=== PATIENT | male | born 1995 | race Caucasian/White ===

== ENCOUNTER 2017-01-29 11:05 | Emergency (ER) | payer OTHER ==
[~2017-01-29] VITALS: Ht 172.7 cm; Wt 75.0 kg
[~2017-01-29 11:05] MED LIST: FAMO40TA70 PO; ONDA4TAB5 PO
[2017-01-29] MEDS ORDERED: SODIUM CHLORIDE 0.9% 1,000 ML IV ONE (11:10)
[2017-01-29] MEDS ORDERED: ONDANSETRON HCL 4MG/2ML VIAL IV STA (11:10)
[2017-01-29] MEDS ORDERED: KETOROLAC 30MG/ML VIAL IV STA (11:10)
[2017-01-29 11:47] LABS: BASOPHILS % 0.5 % (0.0-2.0); EOSINOPHILS % 0.1 % (0.0-5.0); HEMATOCRIT. 45.5 % (42.0-52.0); HEMOGLOBIN. 14.8 g/dL (14.0-18.0); LYMPHOCYTES % 11.2 % (20.0-50.0); MEAN CORPUSCULAR HEMOGLOBIN 26.8 pg (28.0-32.0); MEAN CORPUSCULAR VOLUME 82.7 fL (80.0-94.0); MEAN PLATELET VOLUME 8.8 fl (7.4-10.4); MONOCYTES % 5.6 % (2.0-8.0); NEUTROPHILS % 82.6 % (40.0-76.0); PLATELET 308 x1000/uL (130-400); RED CELL DISTRIBUTION WIDTH 17.1 % (11.6-14.6)
[2017-01-29 11:53] LABS: PROTHROMBIN TIME 10.8 sec (9.4-11.6)
[2017-01-29 12:00] LABS: CARBON DIOXIDE 25 mEq/L (21-32); CHLORIDE 107 mEq/L (98-107); ETHANOL BLOOD < 10 mg/dL
[2017-01-29] MEDS ORDERED: LORAZEPAM 2MG/ML CPJ IV ONE (12:00)
[2017-01-29] MEDS ORDERED: CAPSAICIN 0.075% CREAM 60GM TOP PRN (13:30)
[2017-01-29] MEDS ORDERED: ONDANSETRON HCL 4MG/2ML VIAL IV ONE (15:15)
[2017-01-29] MEDS ORDERED: MORPHINE SULFATE 4 MG/ML CPJ (NOT FOR IM USE) IV ONE (15:15)
[2017-01-29] MEDS ORDERED: MORPHINE SULFATE 2 MG/ML CPJ (NOT FOR IM USE) IV ONE (15:20)
[2017-01-29 16:00] VITALS: BP 114/58
== END 2017-01-29 16:00 | disposition home or self-care (01) ==
LOC: ER 11:14
DX: R10.9 Unspecified abdominal pain (principal); Z87.11 Personal history of peptic ulcer disease
CPT/HCPCS: 36415; 74176; 80053; 83690; 85025; 85610; 96361; 96374; 96375; 96376; 99285; G0482; J1885; J2060; J2270; J2405; Z7610; J7030

== ENCOUNTER 2017-02-13 02:45 | Emergency (ER) | payer OTHER ==
[~2017-02-13] VITALS: Ht 165.1 cm; Wt 72.0 kg
[2017-02-13] MEDS ORDERED: KETOROLAC 30MG/ML VIAL IM ONE (05:00)
[2017-02-13] MEDS ORDERED: ONDANSETRON 4MG ODT PO ONE (05:00)
[2017-02-13] MEDS ORDERED: CEPHALEXIN 500MG CAPSULE PO ONE (06:30)
[2017-02-13] MEDS ORDERED: TETANUS, DIPHTHERIA, PERTUSSIS VAC/PF 0.5ML (>7YR OLD) IM ONE (06:30)
[2017-02-13 07:15] VITALS: BP 122/74
== END 2017-02-13 07:28 | disposition home or self-care (01) ==
LOC: ER 02:56
DX: S61.431A Puncture wound without foreign body of right hand, initial encounter (principal); R03.0 Elevated blood-pressure reading, without diagnosis of hypertension; W34.00XA Accidental discharge from unspecified firearms or gun, initial encounter; Y93.89 Activity, other specified; Y92.89 Other specified places as the place of occurrence of the external cause; Y99.8 Other external cause status
CPT/HCPCS: 29125; 73130; 96372; 99284; A4217; J1885; Q0162; Z7610

== ENCOUNTER 2017-04-29 15:42 | Emergency (ER) | payer OTHER ==
[~2017-04-29] VITALS: Ht 172.7 cm; Wt 65.0 kg
[2017-04-29] MEDS ORDERED: SODIUM CHLORIDE 0.9% 1,000 ML IV ONE (16:22)
[2017-04-29] MEDS ORDERED: FAMOTIDINE 20MG/2ML VIAL IV ONE (16:30)
[2017-04-29] MEDS ORDERED: VISCOUS LIDOCAINE 2% 15 ML UDC PO ONE (16:30)
[2017-04-29] MEDS ORDERED: ONDANSETRON HCL 4MG/2ML INJ IV ONE ×2 (16:30→21:00)
[2017-04-29] MEDS ORDERED: MAGNESIUM/ALUMINUM HYDROXIDE/SIMETHICONE 30ML UDC PO ONE (16:30)
[2017-04-29 16:44] LABS: BASOPHILS % 0.7 % (0.0-2.0); HEMATOCRIT. 47.2 % (42.0-52.0); HEMOGLOBIN. 15.4 g/dL (14.0-18.0); LYMPHOCYTES % 8.9 % (20.0-50.0); MEAN CORPUSCULAR HEMOGLOBIN 27.7 pg (28.0-32.0); MEAN CORPUSCULAR VOLUME 84.7 fL (80.0-94.0); MEAN PLATELET VOLUME 8.6 fl (7.4-10.4); MONOCYTES % 3.2 % (2.0-8.0); NEUTROPHILS % 87.2 % (40.0-76.0); PLATELET 262 x1000/uL (130-400); RED BLOOD CELL COUNT 5.57 mill/uL (4.7-6.1)
[2017-04-29 16:59] LABS: CHLORIDE 105 mEq/L (98-107); ETHANOL BLOOD < 10 mg/dL
[2017-04-29] MEDS ORDERED: POTASSIUM CHLORIDE 20MEQ TABLET SR PO ONE (17:45)
[2017-04-29] MEDS ORDERED: DICYCLOMINE 10 MG/5 ML ORAL SYR PO ONE (17:45)
[2017-04-29] MEDS ORDERED: ONDANSETRON 4MG ODT PO ONE (17:45)
[2017-04-29] MEDS ORDERED: MORPHINE SULFATE 4 MG/ML CPJ (NOT FOR IM USE) IV ONE (17:45)
[2017-04-29] MEDS ORDERED: METOCLOPRAMIDE HCL 10MG/2ML VIAL IV ONE (20:15)
[2017-04-29 23:15] VITALS: BP 111/89
== END 2017-04-29 23:15 | disposition home or self-care (01) ==
LOC: ER 15:47
DX: R10.13 Epigastric pain (principal); R11.2 Nausea with vomiting, unspecified; E87.6 Hypokalemia; K21.9 Gastro-esophageal reflux disease without esophagitis; N28.1 Cyst of kidney, acquired
CPT/HCPCS: 36415; 74176; 80053; 83690; 85025; 96361; 96374; 96375; 96376; 99285; G0482; J2270; J2405; J3490; J7030; Q0162; Z7610

== ENCOUNTER 2017-07-18 05:51 | Inpatient (IN) | payer OTHER ==
[~2017-07-18] VITALS: Ht 165.1 cm; Wt 74.0 kg
[2017-07-18] MEDS ORDERED: SODIUM CHLORIDE 0.9% 1,000 ML IV ONE (06:40)
[2017-07-18] MEDS ORDERED: ONDANSETRON HCL 4MG/2ML VIAL IV STA ×2 (06:40→11:24)
[2017-07-18] MEDS ORDERED: MORPHINE SULFATE 4 MG/ML CPJ (NOT FOR IM USE) IV STA ×2 (06:40→11:24)
[2017-07-18 06:59] LABS: HEMATOCRIT. 51.3 % (42.0-52.0); HEMOGLOBIN. 17.3 g/dL (14.0-18.0); MEAN CORPUSCULAR HEMOGLOBIN 30.2 pg (28.0-32.0); MEAN CORPUSCULAR VOLUME 89.7 fL (80.0-94.0); MEAN PLATELET VOLUME 8.6 fl (7.4-10.4); PLATELET 290 x1000/uL (130-400); RED BLOOD CELL COUNT 5.72 mill/uL (4.7-6.1); RED CELL DISTRIBUTION WIDTH 16.4 % (11.6-14.6)
[2017-07-18 07:03] LABS: CHLORIDE 110 mEq/L (98-107)
[2017-07-18 07:07] LABS: ETHANOL BLOOD 58 mg/dL; INR 1.1; PARTIAL THROMBOPLASTIN TIME 23.5 sec (23.4-31.0); PROTHROMBIN TIME 11.3 sec (9.4-11.6)
[2017-07-18 07:35] LABS: PLATELET ESTIMATE NORMAL
[2017-07-18 08:33] LABS: KETONES URINE 1+ (NEGATIVE); LEUKOCYTE ESTERASE URINE TRACE (NEGATIVE); NITRITE URINE NEGATIVE (NEGATIVE); OCCULT BLOOD URINE NEGATIVE (NEGATIVE); PROTEIN URINE 2+ (NEGATIVE); SPECIFIC GRAVITY URINE 1.039 (1.005-1.030); UROBILINOGEN URINE 0.2 E.U./dL (0.2-1.0)
[2017-07-18 08:35] LABS: COLOR URINE DARK YELLOW (YELLOW)
[2017-07-18 08:36] LABS: CLARITY URINE HAZY (CLEAR)
[2017-07-18] MEDS ORDERED: LEVOFLOXACIN 750MG PREMIX 150 ML IV ONE (09:00)
[2017-07-18] MEDS ORDERED: SODIUM CHLORIDE 0.9% 1000ML BAG (SEPSIS BOLUS) IV ONE (09:00)
[2017-07-18 09:19] LABS: *AMPHETAMINES SCREEN URINE NEGATIVE (NEGATIVE); *BARBITURATES SCREEN URINE NEGATIVE (NEGATIVE); *BENZODIAZEPINES SCREEN URINE NEGATIVE (NEGATIVE)
[2017-07-18 09:20] LABS: *COCAINE SCREEN URINE NEGATIVE (NEGATIVE); CANNABINOID URINE SCREEN PRESUMTIVE POSITIVE (NEGATIVE); METHADONE URINE SCREEN NEGATIVE (NEGATIVE); OPIATES URINE SCREEN PRESUMTIVE POSITIVE (NEGATIVE); PHENCYCLIDINE URINE SCREEN NEGATIVE (NEGATIVE)
[2017-07-18] MEDS ORDERED: ONDANSETRON HCL 4MG/2ML VIAL IV ONE (10:00)
[2017-07-18] MEDS ORDERED: ONDANSETRON HCL 4MG/2ML VIAL IV PRN (11:45)
[2017-07-18] MEDS ORDERED: SODIUM CHLORIDE 0.9% 1,000 ML IV SCH (11:45)
[2017-07-18] MEDS ORDERED: MORPHINE SULFATE 4 MG/ML CPJ (NOT FOR IM USE) IV PRN (11:45)
[2017-07-18 15:00] VITALS: BP 122/80
[2017-07-18 16:21] VITALS: BP 110/59
[2017-07-18 20:00] VITALS: BP 118/65
[2017-07-19] MEDS ORDERED: LEVOFLOXACIN 500MG PREMIX 100 ML IV SCH (09:00)
== END 2017-07-18 23:12 | disposition left against medical advice (07) | DRG 720 ==
LOC: ER 05:51 → 6WST 11:38 → ENRESERV 13:35
PROVIDERS: ADMIT Internal Medicine; ATTEND Internal Medicine
DX: A41.9 Sepsis, unspecified organism (principal); N28.1 Cyst of kidney, acquired; N39.0 Urinary tract infection, site not specified; I88.0 Nonspecific mesenteric lymphadenitis; K21.9 Gastro-esophageal reflux disease without esophagitis; Z53.21 Procedure and treatment not carried out due to patient leaving prior to being seen by health care provider; F15.90 Other stimulant use, unspecified, uncomplicated; R65.20 Severe sepsis without septic shock; Z79.899 Other long term (current) drug therapy
CPT/HCPCS: 36415; 71045; 74176; 80053; 80305; 81003; 83605; 83690; 85025; 85610; 85730; 87040; 87086; 93005; 96361; 96365; 96366; 96375; 96376; 99291; G0482; J1956; J2270; J2405; J7030

== ENCOUNTER 2017-11-25 02:45 | Emergency (ER) | payer OTHER ==
[~2017-11-25] VITALS: Ht 167.6 cm; Wt 72.0 kg
[2017-11-25] MEDS ORDERED: METOCLOPRAMIDE HCL 10MG/2ML VIAL IV STA (03:49)
[2017-11-25 03:58] LABS: BASOPHILS % 0.2 % (0.0-2.0); HEMATOCRIT. 49.1 % (42.0-52.0); HEMOGLOBIN. 16.6 g/dL (14.0-18.0); LYMPHOCYTES % 8.1 % (20.0-50.0); MEAN CORPUSCULAR HEMOGLOBIN 31.1 pg (28.0-32.0); MEAN CORPUSCULAR VOLUME 91.8 fL (80.0-94.0); MEAN PLATELET VOLUME 9.2 fl (7.4-10.4); MONOCYTES % 7.5 % (2.0-8.0); NEUTROPHILS % 84.2 % (40.0-76.0); PLATELET 252 x1000/uL (130-400); RED BLOOD CELL COUNT 5.35 mill/uL (4.7-6.1); RED CELL DISTRIBUTION WIDTH 14.3 % (11.6-14.6)
[2017-11-25 03:59] LABS: CHLORIDE 103 mEq/L (98-107)
[2017-11-25] MEDS ORDERED: HALOPERIDOL LACTATE 5MG/ML VIAL IM ONE (04:00)
[2017-11-25 05:10] LABS: CLARITY URINE CLEAR (CLEAR); COLOR URINE DARK YELLOW (YELLOW); KETONES URINE 1+ (NEGATIVE); LEUKOCYTE ESTERASE URINE TRACE (NEGATIVE); NITRITE URINE NEGATIVE (NEGATIVE); OCCULT BLOOD URINE NEGATIVE (NEGATIVE); PH URINE 7.5 (4.5-8.0); PROTEIN URINE 1+ (NEGATIVE); SPECIFIC GRAVITY URINE 1.029 (1.005-1.030)
[2017-11-25 05:50] VITALS: BP 128/83
== END 2017-11-25 05:53 | disposition home or self-care (01) ==
LOC: ER 02:45
DX: F12.188 Cannabis abuse with other cannabis-induced disorder (principal); R03.0 Elevated blood-pressure reading, without diagnosis of hypertension; D72.829 Elevated white blood cell count, unspecified; F17.210 Nicotine dependence, cigarettes, uncomplicated
CPT/HCPCS: 36415; 80053; 81003; 83690; 85025; 96374; 99284; J1630; J2765

== ENCOUNTER 2018-03-12 22:43 | Emergency (ER) | payer OTHER ==
[~2018-03-12] VITALS: Ht 172.7 cm; Wt 73.0 kg
[2018-03-12 23:00] VITALS: BP 123/84
[2018-03-12] MEDS ORDERED: HALOPERIDOL LACTATE 5MG/ML VIAL IM ONE (23:15)
[2018-03-12] MEDS ORDERED: METOCLOPRAMIDE HCL 10MG/2ML VIAL IV ONE (23:15)
[2018-03-12 23:36] LABS: HEMATOCRIT 51.9 % (42.0-52.0); HEMOGLOBIN 17.2 g/dL (14.0-18.0); MEAN CORPUSCULAR HEMOGLOBIN 30.7 pg (28.0-32.0); MEAN CORPUSCULAR VOLUME 92.3 fL (80.0-94.0); PLATELET 255 x1000/uL (130-400); RED BLOOD CELL COUNT 5.62 mill/uL (4.7-6.1)
[2018-03-12 23:44] LABS: CHLORIDE 109 mEq/L (98-107)
[2018-03-13 01:01] LABS: CLARITY URINE TURBID (CLEAR); COLOR URINE DARK YELLOW (YELLOW); KETONES URINE 1+ (NEGATIVE); LEUKOCYTE ESTERASE URINE 1+ (NEGATIVE); NITRITE URINE POSITIVE (NEGATIVE); OCCULT BLOOD URINE NEGATIVE (NEGATIVE); PH URINE 5.5 (4.5-8.0); PROTEIN URINE 2+ (NEGATIVE); SPECIFIC GRAVITY URINE 1.047 (1.005-1.030)
== END 2018-03-13 02:08 | disposition left against medical advice (07) ==
LOC: ER 22:55
DX: R11.10 Vomiting, unspecified (principal); D72.829 Elevated white blood cell count, unspecified; F12.10 Cannabis abuse, uncomplicated; K21.9 Gastro-esophageal reflux disease without esophagitis; Z98.890 Other specified postprocedural states
CPT/HCPCS: 36415; 80053; 81003; 85027; 96372; 96374; 99283; J1630; J2765

== ENCOUNTER 2018-11-29 14:50 | Emergency (ER) | payer OTHER ==
[~2018-11-29] VITALS: Ht 157.5 cm; Wt 71.0 kg
[~2018-11-29 14:50] MED LIST changes: -FAMO40TA70 PO
[2018-11-29] MEDS ORDERED: SODIUM CHLORIDE 0.9% 1,000 ML IV ONE (15:24)
[2018-11-29] MEDS ORDERED: ONDANSETRON HCL 4MG/2ML INJ IV STA ×2 (15:24→17:02)
[2018-11-29] MEDS ORDERED: MAGNESIUM/ALUMINUM HYDROXIDE/SIMETHICONE 30ML UDC PO STA (15:24)
[2018-11-29] MEDS ORDERED: FAMOTIDINE 20MG/2ML VIAL IV ONE ×2 (15:30→16:15)
[2018-11-29 16:04] LABS: HEMATOCRIT. 51.7 % (42.0-52.0); HEMOGLOBIN. 17.7 g/dL (14.0-18.0); MEAN CORPUSCULAR HEMOGLOBIN 32.3 pg (28.0-32.0); MEAN CORPUSCULAR VOLUME 94.1 fL (80.0-94.0); MEAN PLATELET VOLUME 8.4 fl (7.4-10.4); PLATELET 268 x1000/uL (130-400); RED BLOOD CELL COUNT 5.49 mill/uL (4.7-6.1); RED CELL DISTRIBUTION WIDTH 14.6 % (11.6-14.6)
[2018-11-29 16:13] LABS: CHLORIDE 106 mEq/L (98-107)
[2018-11-29 16:19] LABS: ETHANOL BLOOD < 10 mg/dL
[2018-11-29] MEDS ORDERED: KETOROLAC 30MG/ML VIAL IV ONE (16:45)
[2018-11-29 16:55] LABS: PLATELET ESTIMATE NORMAL
[2018-11-29] MEDS ORDERED: MORPHINE SULFATE 4 MG/ML CPJ (NOT FOR IM USE) IV STA (17:02)
[2018-11-29 17:23] LABS: CLARITY URINE TURBID (CLEAR); COLOR URINE DARK YELLOW (YELLOW); KETONES URINE 1+ (NEGATIVE); LEUKOCYTE ESTERASE URINE TRACE (NEGATIVE); NITRITE URINE POSITIVE (NEGATIVE); OCCULT BLOOD URINE NEGATIVE (NEGATIVE); PROTEIN URINE 3+ (NEGATIVE); SPECIFIC GRAVITY URINE 1.035 (1.005-1.030)
[2018-11-29 18:43] VITALS: BP 120/90
[2018-11-30 11:13] LABS: *AMPHETAMINES SCREEN URINE NEGATIVE (NEGATIVE); *BARBITURATES SCREEN URINE NEGATIVE (NEGATIVE); *BENZODIAZEPINES SCREEN URINE NEGATIVE (NEGATIVE); *COCAINE SCREEN URINE NEGATIVE (NEGATIVE); METHADONE URINE SCREEN NEGATIVE (NEGATIVE); OPIATES URINE SCREEN NEGATIVE (NEGATIVE)
[2018-11-30 11:14] LABS: CANNABINOID URINE SCREEN PRESUMTIVE POSITIVE (NEGATIVE); PHENCYCLIDINE URINE SCREEN NEGATIVE (NEGATIVE)
== END 2018-11-29 20:44 | disposition home or self-care (01) ==
LOC: ER 14:50
DX: A41.9 Sepsis, unspecified organism (principal); N39.0 Urinary tract infection, site not specified; Q61.01 Congenital single renal cyst; K76.0 Fatty (change of) liver, not elsewhere classified; K21.9 Gastro-esophageal reflux disease without esophagitis; N28.9 Disorder of kidney and ureter, unspecified; Z98.890 Other specified postprocedural states; Z87.19 Personal history of other diseases of the digestive system
CPT/HCPCS: 36415; 74176; 80053; 80305; 80320; 81003; 83690; 85025; 87086; 96361; 96374; 96375; 96376; 99284; J1885; J2270; J2405; J3490; J7030; G0480

== ENCOUNTER 2018-12-01 07:40 | Emergency (ER) | payer OTHER ==
[~2018-12-01] VITALS: Ht 165.1 cm; Wt 78.0 kg
[2018-12-01] MEDS ORDERED: SODIUM CHLORIDE 0.9% 1,000 ML IV ONE (07:54)
[2018-12-01] MEDS ORDERED: ONDANSETRON HCL 4MG/2ML INJ IV STA (07:54)
[2018-12-01] MEDS ORDERED: MORPHINE SULFATE 4 MG/ML CPJ (NOT FOR IM USE) IV STA (07:54)
[2018-12-01] MEDS ORDERED: KETOROLAC 15MG/ML VIAL IV ONE (08:00)
[2018-12-01] MEDS ORDERED: LORAZEPAM 2MG/ML CPJ IV ONE (08:00)
[2018-12-01 08:31] LABS: EOSINOPHILS % 0.7 % (0.0-5.0); HEMATOCRIT. 48.5 % (42.0-52.0); HEMOGLOBIN. 16.3 g/dL (14.0-18.0); MEAN CORPUSCULAR HEMOGLOBIN 31.6 pg (28.0-32.0); MEAN CORPUSCULAR VOLUME 93.9 fL (80.0-94.0); MEAN PLATELET VOLUME 8.4 fl (7.4-10.4); MONOCYTES % 8.3 % (2.0-8.0); PLATELET 259 x1000/uL (130-400); RED BLOOD CELL COUNT 5.17 mill/uL (4.7-6.1); RED CELL DISTRIBUTION WIDTH 14.4 % (11.6-14.6)
[2018-12-01 09:02] LABS: CHLORIDE 104 mEq/L (98-107)
[2018-12-01] MEDS ORDERED: POTASSIUM CHLORIDE 20MEQ TABLET SR PO ONE (09:30)
[2018-12-01] MEDS ORDERED: HALOPERIDOL LACTATE 5MG/ML VIAL IM ONE (10:45)
[2018-12-01] MEDS ORDERED: CEPHALEXIN 250MG CAPSULE PO ONE (11:15)
[2018-12-01 11:25] VITALS: BP 139/84
== END 2018-12-01 11:28 | disposition home or self-care (01) ==
LOC: ER 07:40
DX: N39.0 Urinary tract infection, site not specified (principal); G89.29 Other chronic pain; R10.12 Left upper quadrant pain
CPT/HCPCS: 36415; 80053; 83690; 85025; 96361; 96372; 96374; 96375; 99283; J1630; J1885; J2060; J2270; J2405; J7030

== ENCOUNTER 2018-12-07 07:21 | Emergency (ER) | payer OTHER ==
[~2018-12-07] VITALS: Ht 172.7 cm; Wt 90.0 kg
[2018-12-07] MEDS ORDERED: FAMOTIDINE 20MG/2ML VIAL IV STA (08:19)
[2018-12-07] MEDS ORDERED: SODIUM CHLORIDE 0.9% 1,000 ML IV ONE (08:19)
[2018-12-07 08:50] LABS: BASOPHILS % 0.7 % (0.0-2.0); EOSINOPHILS % 1.1 % (0.0-5.0); HEMATOCRIT. 47.2 % (42.0-52.0); HEMOGLOBIN. 16.1 g/dL (14.0-18.0); LYMPHOCYTES % 12.3 % (20.0-50.0); MEAN CORPUSCULAR HEMOGLOBIN 32.4 pg (28.0-32.0); MEAN PLATELET VOLUME 8.4 fl (7.4-10.4); NEUTROPHILS % 77.9 % (40.0-76.0); PLATELET 230 x1000/uL (130-400); RED BLOOD CELL COUNT 4.97 mill/uL (4.7-6.1); RED CELL DISTRIBUTION WIDTH 14.9 % (11.6-14.6)
[2018-12-07 08:56] LABS: PROTHROMBIN TIME 10.4 sec (9.6-11.0)
[2018-12-07 08:56] LABS: CHLORIDE 107 mEq/L (98-107)
[2018-12-07] MEDS ORDERED: MAGNESIUM/ALUMINUM HYDROXIDE/SIMETHICONE 30ML UDC PO STA (09:58)
[2018-12-07] MEDS ORDERED: VISCOUS LIDOCAINE 2% 15 ML UDC PO STA (09:58)
[2018-12-07] MEDS ORDERED: DICYCLOMINE 10 MG/5 ML ORAL SYR PO STA (09:58)
[2018-12-07 10:32] VITALS: BP 156/87
== END 2018-12-07 10:37 | disposition home or self-care (01) ==
LOC: ER 07:21
DX: K29.00 Acute gastritis without bleeding (principal); R11.2 Nausea with vomiting, unspecified; F12.10 Cannabis abuse, uncomplicated
CPT/HCPCS: 36415; 71045; 74176; 80053; 83605; 83690; 85025; 85610; 96361; 96374; 99284; J3490; J7030

== ENCOUNTER 2018-12-14 06:50 | Emergency (ER) | payer OTHER ==
[~2018-12-14] VITALS: Ht 172.7 cm; Wt 79.0 kg
[2018-12-14] MEDS ORDERED: SODIUM CHLORIDE 0.9% 1,000 ML IV ONE (07:40)
[2018-12-14] MEDS ORDERED: ONDANSETRON HCL 4MG/2ML INJ IV STA (07:40)
[2018-12-14] MEDS ORDERED: KETOROLAC 30MG/ML VIAL IV STA (07:40)
[2018-12-14 08:31] LABS: BASOPHILS % 0.4 % (0.0-2.0); EOSINOPHILS % 0.2 % (0.0-5.0); HEMATOCRIT. 43.5 % (42.0-52.0); HEMOGLOBIN. 14.7 g/dL (14.0-18.0); MEAN CORPUSCULAR HEMOGLOBIN 31.8 pg (28.0-32.0); MEAN CORPUSCULAR VOLUME 93.9 fL (80.0-94.0); MONOCYTES % 9.8 % (2.0-8.0); NEUTROPHILS % 75.6 % (40.0-76.0); PLATELET 226 x1000/uL (130-400); RED BLOOD CELL COUNT 4.63 mill/uL (4.7-6.1); RED CELL DISTRIBUTION WIDTH 14.8 % (11.6-14.6)
[2018-12-14 08:37] LABS: CHLORIDE 104 mEq/L (98-107)
[2018-12-14 08:39] LABS: PROTHROMBIN TIME 10.7 sec (9.6-11.0)
[2018-12-14 10:44] LABS: CLARITY URINE TURBID (CLEAR); COLOR URINE ORANGE (YELLOW); KETONES URINE TRACE (NEGATIVE); LEUKOCYTE ESTERASE URINE TRACE (NEGATIVE); NITRITE URINE POSITIVE (NEGATIVE); OCCULT BLOOD URINE NEGATIVE (NEGATIVE); PH URINE 5.5 (4.5-8.0); PROTEIN URINE 1+ (NEGATIVE)
[2018-12-14 10:57] LABS: *AMPHETAMINES SCREEN URINE NEGATIVE (NEGATIVE); *BARBITURATES SCREEN URINE NEGATIVE (NEGATIVE)
[2018-12-14 10:58] LABS: *BENZODIAZEPINES SCREEN URINE NEGATIVE (NEGATIVE); *COCAINE SCREEN URINE NEGATIVE (NEGATIVE); CANNABINOID URINE SCREEN PRESUMTIVE POSITIVE (NEGATIVE); METHADONE URINE SCREEN NEGATIVE (NEGATIVE); OPIATES URINE SCREEN NEGATIVE (NEGATIVE); PHENCYCLIDINE URINE SCREEN NEGATIVE (NEGATIVE)
[2018-12-14 11:50] VITALS: BP 106/82
== END 2018-12-14 11:50 | disposition home or self-care (01) ==
LOC: ER 06:50
DX: K52.9 Noninfective gastroenteritis and colitis, unspecified (principal); N39.0 Urinary tract infection, site not specified; F12.10 Cannabis abuse, uncomplicated
CPT/HCPCS: 36415; 74176; 80053; 80305; 81003; 83690; 85025; 85610; 96361; 96374; 96375; 99284; J1885; J2405; J7030

== ENCOUNTER 2019-01-01 16:42 | Emergency (ER) | payer OTHER ==
[~2019-01-01] VITALS: Ht 165.1 cm; Wt 73.0 kg
[2019-01-01] MEDS ORDERED: VISCOUS LIDOCAINE 2% 15 ML UDC PO STA (19:11)
[2019-01-01] MEDS ORDERED: MAGNESIUM/ALUMINUM HYDROXIDE/SIMETHICONE 30ML UDC PO STA (19:11)
[2019-01-01] MEDS ORDERED: DICYCLOMINE 10 MG/5 ML ORAL SYR PO STA (19:11)
[2019-01-01] MEDS ORDERED: LORAZEPAM 1MG TABLET PO ONE (19:15)
[2019-01-01 21:10] LABS: BASOPHILS % 0.6 % (0.0-2.0); HEMATOCRIT. 57.3 % (42.0-52.0); HEMOGLOBIN. 19.3 g/dL (14.0-18.0); LYMPHOCYTES % 8.9 % (20.0-50.0); MEAN CORPUSCULAR HEMOGLOBIN 32.1 pg (28.0-32.0); MEAN PLATELET VOLUME 8.5 fl (7.4-10.4); MONOCYTES % 8.6 % (2.0-8.0); NEUTROPHILS % 81.9 % (40.0-76.0); PLATELET 330 x1000/uL (130-400); RED BLOOD CELL COUNT 6.03 mill/uL (4.7-6.1); RED CELL DISTRIBUTION WIDTH 14.4 % (11.6-14.6)
[2019-01-01 21:16] LABS: CHLORIDE 102 mEq/L (98-107)
[2019-01-01 21:19] LABS: ETHANOL BLOOD < 10 mg/dL
[2019-01-01] MEDS ORDERED: ONDANSETRON HCL 4MG/2ML INJ IV STA (21:36)
[2019-01-01] MEDS ORDERED: SODIUM CHLORIDE 0.9% 1,000 ML IV ONE (21:36)
[2019-01-01] MEDS ORDERED: MORPHINE SULFATE 4 MG/ML CPJ (NOT FOR IM USE) IV STA (21:36)
[2019-01-01] MEDS: MORPHINE SULFATE 4 MG/ML CPJ (NOT FOR IM USE) IV NR (23:14)
[2019-01-02] MEDS ORDERED: FENTANYL CITRATE/PF 50MCG/ML 2ML VIAL IV ONE (00:30)
[2019-01-02] MEDS ORDERED: SODIUM CHLORIDE 0.9% 1,000 ML IV ONE (00:30)
[2019-01-02] MEDS: MORPHINE SULFATE 4 MG/ML CPJ (NOT FOR IM USE) IV NR (00:35)
[2019-01-02 04:00] VITALS: BP 135/65
== END 2019-01-02 04:22 | disposition short-term general hospital (02) ==
LOC: ER 16:58 → CANBEDREQ 01-02 05:41
DX: N17.9 Acute kidney failure, unspecified (principal); F12.10 Cannabis abuse, uncomplicated; K21.9 Gastro-esophageal reflux disease without esophagitis
CPT/HCPCS: 36415; 74176; 80053; 80320; 83690; 85025; 96374; 96375; 99285; J2270; J2405; J3010; J7030; G0480

== ENCOUNTER 2019-01-25 17:56 | Inpatient (IN) | payer OTHER ==
[~2019-01-25] VITALS: Ht 170.2 cm; Wt 78.0 kg
[2019-01-25] MEDS ORDERED: ONDANSETRON HCL 4MG/2ML INJ IV STA (19:48)
[2019-01-25] MEDS ORDERED: FAMOTIDINE 20MG/2ML VIAL IV STA (19:48)
[2019-01-25] MEDS ORDERED: SODIUM CHLORIDE 0.9% 1,000 ML IV ONE ×2 (19:48→23:51)
[2019-01-25] MEDS ORDERED: HALOPERIDOL LACTATE 5MG/ML VIAL IM ONE (20:00)
[2019-01-25] MEDS ORDERED: LORAZEPAM 2MG/ML CPJ IV ONE (20:00)
[2019-01-25 20:12] LABS: HEMATOCRIT. 52.7 % (42.0-52.0); HEMOGLOBIN. 17.8 g/dL (14.0-18.0); MEAN CORPUSCULAR VOLUME 94.6 fL (80.0-94.0); MEAN PLATELET VOLUME 8.9 fl (7.4-10.4); PLATELET 313 x1000/uL (130-400); RED BLOOD CELL COUNT 5.57 mill/uL (4.7-6.1); RED CELL DISTRIBUTION WIDTH 14.5 % (11.6-14.6)
[2019-01-25 20:16] LABS: CHLORIDE 100 mEq/L (98-107)
[2019-01-25 20:17] LABS: INR 1.7; PROTHROMBIN TIME 16.7 sec (9.6-11.0)
[2019-01-25 21:18] LABS: PLATELET ESTIMATE NORMAL
[2019-01-26] VITALS (8 sets, daily range): BP systolic 105–138; BP diastolic 47–89
[2019-01-26] MEDS ORDERED: FAMO-135 MT (01:12)
[2019-01-26] MEDS ORDERED: MORPHINE SULFATE 4 MG/ML CPJ (NOT FOR IM USE) IV PRN (01:30)
[2019-01-26] MEDS ORDERED: ONDANSETRON 4MG ODT PO PRN (01:30)
[2019-01-26] MEDS ORDERED: SODIUM CHLORIDE 0.9% 1,000 ML IV SCH (02:00)
[2019-01-26 03:15] LABS: CLARITY URINE TURBID (CLEAR); COLOR URINE DARK YELLOW (YELLOW); KETONES URINE TRACE (NEGATIVE); LEUKOCYTE ESTERASE URINE NEGATIVE (NEGATIVE); NITRITE URINE NEGATIVE (NEGATIVE); OCCULT BLOOD URINE NEGATIVE (NEGATIVE); PROTEIN URINE 1+ (NEGATIVE); SPECIFIC GRAVITY URINE 1.028 (1.005-1.030); UROBILINOGEN URINE 0.2 E.U./dL (0.2-1.0)
[2019-01-26 03:29] LABS: *AMPHETAMINES SCREEN URINE NEGATIVE (NEGATIVE); *BARBITURATES SCREEN URINE NEGATIVE (NEGATIVE); *BENZODIAZEPINES SCREEN URINE NEGATIVE (NEGATIVE); *COCAINE SCREEN URINE NEGATIVE (NEGATIVE); METHADONE URINE SCREEN NEGATIVE (NEGATIVE); OPIATES URINE SCREEN NEGATIVE (NEGATIVE)
[2019-01-26 03:30] LABS: CANNABINOID URINE SCREEN PRESUMTIVE POSITIVE (NEGATIVE); PHENCYCLIDINE URINE SCREEN NEGATIVE (NEGATIVE)
[2019-01-26] MEDS ORDERED: CEFTRIAXONE 1 G PREMIX 50 ML IV SCH (04:00)
[2019-01-26 06:49] LABS: BASOPHILS % 0.6 % (0.0-2.0); EOSINOPHILS % 0.1 % (0.0-5.0); HEMATOCRIT. 46.9 % (42.0-52.0); HEMOGLOBIN. 15.6 g/dL (14.0-18.0); MEAN CORPUSCULAR HEMOGLOBIN 31.5 pg (28.0-32.0); MEAN CORPUSCULAR VOLUME 94.8 fL (80.0-94.0); MEAN PLATELET VOLUME 8.5 fl (7.4-10.4); MONOCYTES % 12.6 % (2.0-8.0); NEUTROPHILS % 69.7 % (40.0-76.0); PLATELET 248 x1000/uL (130-400); RED BLOOD CELL COUNT 4.95 mill/uL (4.7-6.1); RED CELL DISTRIBUTION WIDTH 14.6 % (11.6-14.6)
[2019-01-26] MEDS ORDERED: PANTOPRAZOLE SODIUM 40 MG/VIAL IV SCH (09:00)
[2019-01-26] MEDS ORDERED: ONDANSETRON HCL 4MG/2ML INJ IV PRN (09:30)
[2019-01-26] MEDS ORDERED: HYDROMORPHONE HCL/PF 2MG/ML CPJ IV PRN (12:15)
[2019-01-26] MEDS: METOCLOPRAMIDE HCL 10MG/2ML VIAL IV SCH ×2 (12:59→17:27)
== END 2019-01-26 17:58 | disposition home or self-care (01) | DRG 720 ==
LOC: ER 17:56 → 7WST 23:54 → ENRESERV 01-26 00:07
PROVIDERS: ADMIT Internal Medicine; ATTEND Internal Medicine
DX: A41.9 Sepsis, unspecified organism (principal); N17.0 Acute kidney failure with tubular necrosis; Z79.899 Other long term (current) drug therapy; K52.9 Noninfective gastroenteritis and colitis, unspecified; E87.6 Hypokalemia; G89.29 Other chronic pain; K21.9 Gastro-esophageal reflux disease without esophagitis
CPT/HCPCS: 36415; 71045; 80048; 80305; 80320; 81003; 93005; 96361; 96372; 96374; 96375; 99285; C9113; J0696; J1170; J1630; J2060; J2270; J2405; J2765; J3490; J7030; G0480

== ENCOUNTER 2019-02-25 05:51 | Emergency (ER) | payer OTHER ==
[~2019-02-25] VITALS: Ht 157.5 cm; Wt 73.0 kg
[~2019-02-25 05:51] MED LIST changes: +FAMO-135 MT
[2019-02-25 07:28] LABS: BASOPHILS % 0.6 % (0.0-2.0); HEMOGLOBIN. 18.1 g/dL (14.0-18.0); LYMPHOCYTES % 7.4 % (20.0-50.0); MEAN CORPUSCULAR HEMOGLOBIN 31.5 pg (28.0-32.0); MEAN CORPUSCULAR VOLUME 92.5 fL (80.0-94.0); MEAN PLATELET VOLUME 9.1 fl (7.4-10.4); PLATELET 268 x1000/uL (130-400); RED BLOOD CELL COUNT 5.73 mill/uL (4.7-6.1); RED CELL DISTRIBUTION WIDTH 14.6 % (11.6-14.6)
[2019-02-25 07:29] LABS: CHLORIDE 95 mEq/L (98-107)
[2019-02-25 07:37] LABS: CREATINE KINASE 957 IU/L (39-308)
[2019-02-25] MEDS: PANTOPRAZOLE SODIUM 40 MG/VIAL IV STA (08:14)
[2019-02-25] MEDS: SODIUM CHLORIDE 0.9% 1,000 ML IV ONE ×3 (08:14→11:30)
[2019-02-25] MEDS: METOCLOPRAMIDE HCL 10MG/2ML VIAL IV STA (08:14)
[2019-02-25 08:40] LABS: CLARITY URINE TURBID (CLEAR); COLOR URINE DARK YELLOW (YELLOW); KETONES URINE TRACE (NEGATIVE); LEUKOCYTE ESTERASE URINE TRACE (NEGATIVE); NITRITE URINE NEGATIVE (NEGATIVE); OCCULT BLOOD URINE NEGATIVE (NEGATIVE); PROTEIN URINE 1+ (NEGATIVE); SPECIFIC GRAVITY URINE 1.028 (1.005-1.030)
[2019-02-25] MEDS: MORPHINE SULFATE 2 MG/ML CPJ (NOT FOR IM USE) IV ONE (08:51)
[2019-02-25] MEDS: HALOPERIDOL LACTATE 5MG/ML VIAL IM ONE (10:02)
[2019-02-25] MEDS: LORAZEPAM 2MG/ML CPJ IV ONE ×2 (10:17→10:45)
[2019-02-25] MEDS: CAPSAICIN 0.075% CREAM 60GM TOP ONE (10:20)
[2019-02-25 10:36] LABS: CHLORIDE 102 mEq/L (98-107)
[2019-02-25 14:04] VITALS: BP 133/86
== END 2019-02-25 14:11 | disposition home or self-care (01) ==
LOC: ER 05:51
DX: F12.188 Cannabis abuse with other cannabis-induced disorder (principal); E86.0 Dehydration; N17.9 Acute kidney failure, unspecified; R10.84 Generalized abdominal pain
CPT/HCPCS: 36415; 71045; 80053; 81003; 82550; 83690; 85025; 96361; 96372; 96374; 96375; 99284; C9113; J1630; J2060; J2270; J2765

== ENCOUNTER 2019-04-08 13:04 | Inpatient (IN) | payer OTHER ==
[~2019-04-08] VITALS: Ht 172.7 cm; Wt 80.0 kg
[2019-04-08] MEDS ORDERED: METOCLOPRAMIDE HCL 10MG/2ML VIAL IV STA (15:21)
[2019-04-08] MEDS ORDERED: ONDANSETRON HCL 4MG/2ML INJ IV STA (15:21)
[2019-04-08] MEDS ORDERED: SODIUM CHLORIDE 0.9% 1,000 ML IV ONE ×2 (15:21→23:15)
[2019-04-08 16:22] LABS: HEMATOCRIT. 58.8 % (42.0-52.0); HEMOGLOBIN. 19.8 g/dL (14.0-18.0); MEAN CORPUSCULAR HEMOGLOBIN 31.1 pg (28.0-32.0); MEAN CORPUSCULAR VOLUME 92.1 fL (80.0-94.0); MEAN PLATELET VOLUME 9.3 fl (7.4-10.4); PLATELET 284 x1000/uL (130-400); RED BLOOD CELL COUNT 6.39 mill/uL (4.7-6.1); RED CELL DISTRIBUTION WIDTH 14.8 % (11.6-14.6)
[2019-04-08 16:25] LABS: CHLORIDE 100 mEq/L (98-107)
[2019-04-08 17:45] LABS: PLATELET ESTIMATE NORMAL
[2019-04-08] MEDS ORDERED: PIPERACILLIN/TAZ 3.375G PREMIX 50 ML IV NR (18:22)
[2019-04-08] MEDS ORDERED: PIPERACILLIN/TAZOBACTAM 3.375GM/50ML PREMIX IV ONE (18:30)
[2019-04-08] MEDS ORDERED: MORPHINE SULFATE 4 MG/ML CPJ (NOT FOR IM USE) IV ONE (19:00)
[2019-04-08] MEDS ORDERED: PIPERACILLIN/TAZOBACTAM 3.375 G in DEXT 5% WATER 100 ML IV SCH (19:30)
[2019-04-08] MEDS ORDERED: ACETAMINOPHEN 325MG TABLET PO PRN (19:30)
[2019-04-08] MEDS ORDERED: SODIUM CHLORIDE 0.9% 1,000 ML IV SCH (19:30)
[2019-04-08 20:34] LABS: CREATINE KINASE 9068 IU/L (39-308)
[2019-04-08] MEDS: MORPHINE SULFATE 2 MG/ML CPJ (NOT FOR IM USE) IV PRN (21:40)
[2019-04-08] MEDS: ONDANSETRON HCL 4MG/2ML INJ IV PRN (21:40)
[2019-04-08 22:50] VITALS: BP 135/82
[2019-04-08] MEDS: LORAZEPAM 2MG/ML CPJ IV PRN (23:52)
[2019-04-08] MEDS: METOCLOPRAMIDE HCL 10MG/2ML VIAL IV SCH (23:53)
[2019-04-09] MEDS ORDERED: VANCOMYCIN 1250MG in DEXTROSE 5% WATER 250ML IV SCH (02:30)
[2019-04-09 04:00] VITALS: BP 142/96
[2019-04-09] MEDS: METOCLOPRAMIDE HCL 10MG/2ML VIAL IV SCH ×3 (05:19→17:52)
[2019-04-09] MEDS: ONDANSETRON HCL 4MG/2ML INJ IV PRN ×2 (05:20→08:17)
[2019-04-09] MEDS: LORAZEPAM 2MG/ML CPJ IV PRN (05:20)
[2019-04-09] MEDS: PIPERACILLIN/TAZOBACTAM 2.25 G in DEXT 5% WATER 100 ML IV SCH ×2 (05:20→13:02)
[2019-04-09 06:43] LABS: HEMATOCRIT. 50.4 % (42.0-52.0); HEMOGLOBIN. 16.5 g/dL (14.0-18.0); MEAN CORPUSCULAR HEMOGLOBIN 30.4 pg (28.0-32.0); MEAN CORPUSCULAR VOLUME 92.9 fL (80.0-94.0); MEAN PLATELET VOLUME 10.2 fl (7.4-10.4); PLATELET 227 x1000/uL (130-400); RED BLOOD CELL COUNT 5.42 mill/uL (4.7-6.1); RED CELL DISTRIBUTION WIDTH 14.7 % (11.6-14.6)
[2019-04-09 08:00] VITALS: BP 121/84
[2019-04-09] MEDS: MORPHINE SULFATE 2 MG/ML CPJ (NOT FOR IM USE) IV PRN (08:17)
[2019-04-09 08:31] LABS: CHLORIDE 97 mEq/L (98-107)
[2019-04-09 08:49] LABS: CREATINE KINASE MB FRACTION 29.6 ng/mL (0.5-3.6)
[2019-04-09] MEDS ORDERED: PANTOPRAZOLE SODIUM 40 MG/VIAL IV SCH (09:00)
[2019-04-09] MEDS ORDERED: PROCHLORPERAZINE 10MG/2ML VIAL IV PRN (10:00)
[2019-04-09 10:22] LABS: PLATELET ESTIMATE NORMAL
[2019-04-09 11:12] LABS: CREATINE KINASE 13798 IU/L (39-308)
[2019-04-09 11:24] VITALS: BP 130/76
[2019-04-09] MEDS ORDERED: MORPHINE SULFATE 2 MG/ML CPJ (NOT FOR IM USE) IV PRN (11:30)
[2019-04-09] MEDS ORDERED: ONDANSETRON HCL 4MG/2ML INJ IV PRN (13:30)
[2019-04-09 15:41] VITALS: BP 112/70
[2019-04-09 15:48] VITALS: BP 114/71
[2019-04-09] MEDS ORDERED: SODIUM CHLORIDE 0.9% 1,000 ML IV SCH (18:00)
[2019-04-09 20:00] VITALS: BP 123/85
== END 2019-04-09 21:25 | disposition short-term general hospital (02) | DRG 720 ==
LOC: ER 13:04 → EDBEDREQ 18:55 → ENRESERV 21:54 → 6WST 23:12
PROVIDERS: ADMIT Internal Medicine; ATTEND Internal Medicine
DX: A41.9 Sepsis, unspecified organism (principal); N17.0 Acute kidney failure with tubular necrosis; M62.82 Rhabdomyolysis; E87.1 Hypo-osmolality and hyponatremia; K29.70 Gastritis, unspecified, without bleeding; K76.0 Fatty (change of) liver, not elsewhere classified; N18.9 Chronic kidney disease, unspecified; K21.9 Gastro-esophageal reflux disease without esophagitis; F19.11 Other psychoactive substance abuse, in remission; Z79.899 Other long term (current) drug therapy; Z87.11 Personal history of peptic ulcer disease; Z82.49 Family history of ischemic heart disease and other diseases of the circulatory system; K52.9 Noninfective gastroenteritis and colitis, unspecified
CPT/HCPCS: 36415; 74176; 76770; 80048; 80053; 82550; 82553; 83605; 84100; 84484; 85025; 96365; 96368; 96375; 99285; C9113; J0780; J2060; J2270; J2405; J2543; J2765; J3370; J7030; J7060

== ENCOUNTER 2019-05-27 04:57 | Emergency (ER) | payer OTHER ==
[~2019-05-27] VITALS: Ht 167.6 cm; Wt 77.0 kg
[2019-05-27] MEDS ORDERED: MAGNESIUM/ALUMINUM HYDROXIDE/SIMETHICONE 30ML UDC PO STA (05:16)
[2019-05-27] MEDS ORDERED: VISCOUS LIDOCAINE 2% 15 ML UDC PO STA (05:16)
[2019-05-27] MEDS ORDERED: SODIUM CHLORIDE 0.9% 1,000 ML IV ONE (05:30)
[2019-05-27] MEDS ORDERED: METOCLOPRAMIDE HCL 10MG/2ML VIAL IV ONE (05:30)
[2019-05-27] MEDS ORDERED: ONDANSETRON HCL 4MG/2ML INJ IV ONE (05:30)
[2019-05-27 05:31] LABS: HEMATOCRIT. 53.4 % (42.0-52.0); HEMOGLOBIN. 18.7 g/dL (14.0-18.0); MEAN CORPUSCULAR HEMOGLOBIN 31.7 pg (28.0-32.0); MEAN CORPUSCULAR VOLUME 90.7 fL (80.0-94.0); MEAN PLATELET VOLUME 9.2 fl (7.4-10.4); PLATELET 292 x1000/uL (130-400); RED BLOOD CELL COUNT 5.89 mill/uL (4.7-6.1); RED CELL DISTRIBUTION WIDTH 14.8 % (11.6-14.6)
[2019-05-27 05:42] LABS: CHLORIDE 85 mEq/L (98-107)
[2019-05-27 05:48] LABS: PROTHROMBIN TIME 11.3 sec (9.6-11.0)
[2019-05-27] MEDS ORDERED: POTASSIUM CHLORIDE INJ 40 MEQ in DEXT 5% WATER 250 ML IV ONE (06:00)
[2019-05-27] MEDS ORDERED: MORPHINE SULFATE 4 MG/ML CPJ (NOT FOR IM USE) IV STA (06:37)
[2019-05-27 07:18] LABS: PLATELET ESTIMATE NORMAL
[2019-05-27] MEDS ORDERED: MORPHINE SULFATE 4 MG/ML CPJ (NOT FOR IM USE) IV ONE ×2 (08:00→11:15)
[2019-05-27] MEDS ORDERED: POTASSIUM CHLORIDE 20MEQ TABLET SR PO ONE (11:45)
[2019-05-27 13:55] VITALS: BP 131/83
[2019-05-27] MEDS ORDERED: KETOROLAC 30MG/ML VIAL IV ONE (14:30)
== END 2019-05-27 14:39 | disposition short-term general hospital (02) ==
LOC: ER 04:57
DX: R10.9 Unspecified abdominal pain (principal)
CPT/HCPCS: 36415; 74176; 80053; 83690; 85025; 85610; 96361; 96365; 96375; 96376; 99285; J1885; J2270; J2405; J2765; J3480; J7030; J7060

== ENCOUNTER 2019-10-23 05:58 | Emergency (ER) | payer OTHER ==
[~2019-10-23] VITALS: Ht 162.6 cm; Wt 75.0 kg
[2019-10-23] MEDS ORDERED: FAMOTIDINE 20MG/2ML VIAL IV STA (06:34)
[2019-10-23] MEDS ORDERED: MORPHINE SULFATE 4 MG/ML CPJ (NOT FOR IM USE) IV STA (06:34)
[2019-10-23] MEDS ORDERED: ONDANSETRON HCL 4MG/2ML INJ IV STA (06:34)
[2019-10-23] MEDS ORDERED: PANTOPRAZOLE SODIUM 40 MG/VIAL IV STA (06:34)
[2019-10-23] MEDS ORDERED: SODIUM CHLORIDE 0.9% 1,000 ML IV ONE (06:34)
[2019-10-23 07:15] LABS: BASOPHILS % 0.7 % (0.0-2.0); HEMATOCRIT. 53.6 % (42.0-52.0); HEMOGLOBIN. 18.2 g/dL (14.0-18.0); LYMPHOCYTES % 7.7 % (20.0-50.0); MEAN CORPUSCULAR HEMOGLOBIN 30.6 pg (28.0-32.0); MEAN CORPUSCULAR VOLUME 90.4 fL (80.0-94.0); MEAN PLATELET VOLUME 9.4 fl (7.4-10.4); MONOCYTES % 5.9 % (2.0-8.0); NEUTROPHILS % 85.7 % (40.0-76.0); PLATELET 266 x1000/uL (130-400); RED BLOOD CELL COUNT 5.93 mill/uL (4.7-6.1)
[2019-10-23] MEDS ORDERED: MORPHINE SULFATE 4 MG/ML CPJ (NOT FOR IM USE) IV ONE ×2 (07:15→09:30)
[2019-10-23 07:33] LABS: CHLORIDE 98 mEq/L (98-107)
[2019-10-23 07:37] LABS: ETHANOL BLOOD < 10 mg/dL
[2019-10-23 08:28] LABS: PROTHROMBIN TIME 10.6 sec (9.6-11.0)
[2019-10-23] MEDS ORDERED: AZITHROMYCIN 500 MG in DEXT 5% WATER 250 ML IV ONE (08:30)
[2019-10-23] MEDS ORDERED: CEFTRIAXONE 1 G PREMIX 50 ML IV ONE (08:30)
[2019-10-23] MEDS: MORPHINE SULFATE 2 MG/ML CPJ (NOT FOR IM USE) IV PRN ×2 (12:31→18:01)
[2019-10-23] MEDS ORDERED: HYDROMORPHONE HCL/PF 2MG/ML CPJ IV PRN (13:15)
[2019-10-23 18:03] VITALS: BP 135/95
[2019-10-23] MEDS ORDERED: SODIUM CHLORIDE 0.9% 1,000 ML IV SCH (19:00)
[2019-10-23] MEDS ORDERED: CLONIDINE 0.1MG TABLET PO PRN (19:00)
[2019-10-23] MEDS ORDERED: HYDROCODONE/ACETAMINOPHEN 5/325MG TABLET PO PRN (19:00)
[2019-10-23] MEDS ORDERED: IPRATROPIUM/ALBUTEROL 0.5-3(2.5)MG/3ML NEB HHN PRN (19:00)
[2019-10-23] MEDS ORDERED: MAGNESIUM/ALUMINUM HYDROXIDE/SIMETHICONE 30ML UDC PO PRN (19:00)
[2019-10-23] MEDS ORDERED: ACETAMINOPHEN 325MG TABLET PO PRN (19:00)
[2019-10-23] MEDS ORDERED: DOCUSATE SODIUM 100MG CAPSULE PO PRN (19:00)
[2019-10-23 20:20] LABS: TOTAL IRON BINDING CAPACITY 492 ug/dL (250-450)
[2019-10-24] MEDS ORDERED: CEFTRIAXONE 1 G PREMIX 50 ML IV SCH (09:00)
[2019-10-24] MEDS ORDERED: PANTOPRAZOLE SODIUM 40 MG/VIAL IV SCH (09:00)
[2019-10-24] MEDS ORDERED: AZITHROMYCIN 500 MG in DEXT 5% WATER 250 ML IV SCH (10:00)
== END 2019-10-23 19:29 | disposition left against medical advice (07) ==
LOC: ER 05:58 → EDBEDREQTM 09:05 → EDBEDREQ 09:05 → ER 19:29 → CANRESERV 19:50 → ENRESERV 19:50 → CANBEDREQ 10-24 13:29
DX: R11.2 Nausea with vomiting, unspecified (principal); Z20.828 Contact with and (suspected) exposure to other viral communicable diseases; R91.8 Other nonspecific abnormal finding of lung field; F12.10 Cannabis abuse, uncomplicated
CPT/HCPCS: 36415; 71045; 74176; 80053; 80320; 83540; 83550; 83605; 83690; 84484; 85025; 85610; 85730; 87040; 87635; 93005; 99291; C9113; J0456; J0696; J2270; J2405; J3490; J7030; J7060; 80305; G0480

== ENCOUNTER 2020-02-26 14:46 | Emergency (ER) | payer OTHER ==
[~2020-02-26] VITALS: Ht 177.8 cm; Wt 84.0 kg
[2020-02-26 18:23] LABS: CHLORIDE 108 mEq/L (98-107)
[2020-02-26 18:24] LABS: BASOPHILS % 0.3 % (0.0-2.0); EOSINOPHILS % 0.2 % (0.0-5.0); HEMATOCRIT. 47.2 % (42.0-52.0); MEAN CORPUSCULAR HEMOGLOBIN 30.8 pg (28.0-32.0); MEAN CORPUSCULAR VOLUME 91.2 fL (80.0-94.0); MEAN PLATELET VOLUME 8.8 fl (7.4-10.4); MONOCYTES % 7.1 % (2.0-8.0); NEUTROPHILS % 74.4 % (40.0-76.0); PLATELET 222 x1000/uL (130-400); RED BLOOD CELL COUNT 5.18 mill/uL (4.7-6.1); RED CELL DISTRIBUTION WIDTH 14.1 % (11.6-14.6)
[2020-02-26 18:30] LABS: BETA HYDROXYBUTYRATE 0.5 mMol/L (0.0-0.3)
[2020-02-26 20:14] LABS: CLARITY URINE CLOUDY (CLEAR); COLOR URINE DARK YELLOW (YELLOW); KETONES URINE TRACE (NEGATIVE); LEUKOCYTE ESTERASE URINE 1+ (NEGATIVE); NITRITE URINE POSITIVE (NEGATIVE); OCCULT BLOOD URINE NEGATIVE (NEGATIVE); PROTEIN URINE 2+ (NEGATIVE); SPECIFIC GRAVITY URINE 1.048 (1.005-1.030)
[2020-02-26] MEDS ORDERED: HYDROCODONE/ACETAMINOPHEN 5/325MG TABLET PO ONE (20:15)
[2020-02-26 20:28] LABS: METHADONE URINE SCREEN NEGATIVE (NEGATIVE); OPIATES URINE SCREEN NEGATIVE (NEGATIVE); PHENCYCLIDINE URINE SCREEN NEGATIVE (NEGATIVE)
[2020-02-26 20:30] LABS: *AMPHETAMINES SCREEN URINE NEGATIVE (NEGATIVE); *BARBITURATES SCREEN URINE NEGATIVE (NEGATIVE); *BENZODIAZEPINES SCREEN URINE NEGATIVE (NEGATIVE); *COCAINE SCREEN URINE NEGATIVE (NEGATIVE); CANNABINOID URINE SCREEN PRESUMTIVE POSITIVE (NEGATIVE)
[2020-02-26] MEDS ORDERED: KETOROLAC 30MG/ML VIAL IV NR (22:30)
[2020-02-26] MEDS: MORPHINE SULFATE 2 MG/ML CPJ (NOT FOR IM USE) IV PRN (23:08)
[2020-02-26] MEDS ORDERED: MORPHINE SULFATE 4 MG/ML CPJ (NOT FOR IM USE) IV ONE (23:15)
[2020-02-26] MEDS ORDERED: ONDANSETRON HCL 4MG/2ML INJ IV ONE (23:15)
[2020-02-26] MEDS ORDERED: CEFTRIAXONE 1 G PREMIX 50 ML IV ONE (23:15)
[2020-02-26] MEDS ORDERED: SODIUM CHLORIDE 0.9% 1,000 ML IV ONE (23:15)
[2020-02-26] MEDS ORDERED: LORAZEPAM 2MG/ML CPJ IV ONE (23:15)
[2020-02-27] MEDS: MORPHINE SULFATE 2 MG/ML CPJ (NOT FOR IM USE) IV PRN ×4 (08:27→19:11)
[2020-02-27] MEDS ORDERED: ONDANSETRON HCL 4MG/2ML INJ IV PRN (09:00)
[2020-02-27] MEDS ORDERED: ENOXAPARIN 40MG/0.4ML SYR SUBCUT SCH (09:00)
[2020-02-27] MEDS ORDERED: CLONIDINE 0.1MG TABLET PO PRN (09:00)
[2020-02-27] MEDS ORDERED: CEFTRIAXONE 1 G PREMIX 50 ML IV SCH (09:00)
[2020-02-27] MEDS ORDERED: DIPHENHYDRAMINE 50MG/ML VIAL IV PRN (09:00)
[2020-02-27] MEDS: SODIUM CHLORIDE 0.9% 1,000 ML IV SCH ×2 (09:06→21:04)
[2020-02-27] MEDS ORDERED: CEFTRIAXONE 1 G PREMIX 50 ML IV NR (09:15)
[2020-02-27] MEDS: ACETAMINOPHEN 325MG TABLET PO PRN ×2 (10:46→21:05)
[2020-02-27] MEDS: FAMOTIDINE 20MG/2ML VIAL IV SCH ×2 (10:46→21:04)
[2020-02-27] MEDS ORDERED: SODIUM POLYSTYRENE SULFONATE 15 G/60 ML BOT PO NR (15:30)
[2020-02-27 17:44] VITALS: BP 142/80
[2020-02-27] MEDS ORDERED: METOCLOPRAMIDE HCL 10MG/2ML VIAL IV PRN (19:45)
[2020-02-28] MEDS ORDERED: CEFTRIAXONE 1,000 MG in DEXTROSE 5% WATER 50 ML IV SCH (09:00)
[2020-03-01 13:06] LABS: GASTRIN 391 pg/mL (0-115)
== END 2020-02-27 21:29 | disposition left against medical advice (07) ==
LOC: ER 14:46 → EDBEDREQ 19:43 → EDBEDREQTM 19:43 → CANBEDREQ 02-27 21:26 → ER 02-27 21:29
DX: U07.1 COVID-19 (principal); N39.0 Urinary tract infection, site not specified; R03.0 Elevated blood-pressure reading, without diagnosis of hypertension; E87.5 Hyperkalemia; F11.10 Opioid abuse, uncomplicated
CPT/HCPCS: 36415; 71045; 74176; 80053; 80305; 81003; 82010; 82941; 83880; 84132; 84145; 84484; 85025; 85651; 87040; 87086; 87635; 93970; 96361; 96365; 96375; 96376; 99285; J0696; J2060; J2270; J2405; J2765; J3490; J7030; Z7610

== ENCOUNTER 2020-11-12 22:56 | Emergency (ER) | payer OTHER ==
[~2020-11-12] VITALS: Ht 172.7 cm; Wt 79.4 kg
[2020-11-12] MEDS ORDERED: MORPHINE SULFATE 4 MG/ML CPJ (NOT FOR IM USE) IV STA (23:32)
[2020-11-12] MEDS ORDERED: ONDANSETRON HCL 4MG/2ML INJ IV STA (23:32)
[2020-11-12] MEDS ORDERED: SODIUM CHLORIDE 0.9% 1,000 ML IV ONE (23:45)
[2020-11-13 00:01] LABS: BASOPHILS % 0.4 % (0.0-2.0); HEMATOCRIT. 45.8 % (42.0-52.0); HEMOGLOBIN. 16.1 g/dL (14.0-18.0); LYMPHOCYTES % 9.6 % (20.0-50.0); MEAN CORPUSCULAR HEMOGLOBIN 31.5 pg (28.0-32.0); MEAN CORPUSCULAR VOLUME 89.7 fL (80.0-94.0); MEAN PLATELET VOLUME 9.3 fl (7.4-10.4); MONOCYTES % 6.5 % (2.0-8.0); NEUTROPHILS % 83.5 % (40.0-76.0); PLATELET 275 x1000/uL (130-400); RED BLOOD CELL COUNT 5.11 mill/uL (4.7-6.1); RED CELL DISTRIBUTION WIDTH 14.2 % (11.6-14.6)
[2020-11-13 00:02] LABS: CHLORIDE 107 mEq/L (98-107)
[2020-11-13 00:03] LABS: PROTHROMBIN TIME 11.2 sec (9.6-11.0)
[2020-11-13 00:08] LABS: ETHANOL BLOOD < 10 mg/dL
[2020-11-13] MEDS ORDERED: LORAZEPAM 2MG/ML CPJ IV ONE (00:15)
[2020-11-13] MEDS ORDERED: METOCLOPRAMIDE HCL 10MG/2ML VIAL IV ONE (00:15)
[2020-11-13] MEDS ORDERED: ACETAMINOPHEN 325MG TABLET PO ONE (02:30)
[2020-11-13 03:05] LABS: CLARITY URINE CLEAR (CLEAR); COLOR URINE YELLOW (YELLOW); KETONES URINE TRACE (NEGATIVE); LEUKOCYTE ESTERASE URINE NEGATIVE (NEGATIVE); NITRITE URINE NEGATIVE (NEGATIVE); OCCULT BLOOD URINE NEGATIVE (NEGATIVE); PH URINE 5.5 (4.5-8.0); PROTEIN URINE 2+ (NEGATIVE); SPECIFIC GRAVITY URINE 1.028 (1.005-1.030)
[2020-11-13] MEDS ORDERED: ONDANSETRON HCL 4MG/2ML INJ IV ONE (03:15)
[2020-11-13 03:39] LABS: CANNABINOID URINE SCREEN PRESUMTIVE POSITIVE (NEGATIVE); METHADONE URINE SCREEN NEGATIVE (NEGATIVE); OPIATES URINE SCREEN PRESUMTIVE POSITIVE (NEGATIVE); PHENCYCLIDINE URINE SCREEN NEGATIVE (NEGATIVE)
[2020-11-13 03:40] LABS: *AMPHETAMINES SCREEN URINE NEGATIVE (NEGATIVE); *BARBITURATES SCREEN URINE NEGATIVE (NEGATIVE); *BENZODIAZEPINES SCREEN URINE NEGATIVE (NEGATIVE); *COCAINE SCREEN URINE NEGATIVE (NEGATIVE)
[2020-11-13] MEDS ORDERED: IOHEXOL-300 100 ML BOTTLE ONE (05:30)
[2020-11-13 05:42] VITALS: BP 125/75
== END 2020-11-13 05:43 | disposition home or self-care (01) ==
LOC: ER 22:56
DX: R10.9 Unspecified abdominal pain (principal); R11.2 Nausea with vomiting, unspecified; T40.7X5A Adverse effect of cannabis (derivatives), initial encounter; Z98.890 Other specified postprocedural states; Y92.9 Unspecified place or not applicable
CPT/HCPCS: 36415; 71045; 74177; 80053; 80305; 80320; 81003; 83605; 83690; 84484; 85025; 85610; 86850; 86900; 86901; 96361; 96374; 96375; 96376; 99285; J2060; J2270; J2405; J2765; J7030; Q9967; G0480

== ENCOUNTER 2020-11-13 06:17 | Inpatient (IN) | payer OTHER ==
[~2020-11-13] VITALS: Ht 172.7 cm; Wt 79.4 kg
[2020-11-13] MEDS ORDERED: PANTOPRAZOLE SODIUM 40 MG/VIAL IV STA (06:41)
[2020-11-13] MEDS ORDERED: MAGNESIUM/ALUMINUM HYDROXIDE/SIMETHICONE 30ML UDC PO STA (06:41)
[2020-11-13] MEDS ORDERED: PROCHLORPERAZINE 10MG/2ML VIAL IM SCH (06:45)
[2020-11-13] MEDS ORDERED: SODIUM CHLORIDE 0.9% 1,000 ML IV ONE ×2 (06:45→09:00)
[2020-11-13 07:04] LABS: CHLORIDE 106 mEq/L (98-107)
[2020-11-13 07:07] LABS: PROTHROMBIN TIME 11.2 sec (9.6-11.0)
[2020-11-13 07:08] LABS: ETHANOL BLOOD < 10 mg/dL
[2020-11-13 08:06] LABS: BASOPHILS % 0.2 % (0.0-2.0); HEMATOCRIT. 40.9 % (42.0-52.0); LYMPHOCYTES % 10.1 % (20.0-50.0); MEAN CORPUSCULAR HEMOGLOBIN 30.8 pg (28.0-32.0); MEAN CORPUSCULAR VOLUME 90.2 fL (80.0-94.0); MEAN PLATELET VOLUME 8.9 fl (7.4-10.4); MONOCYTES % 8.6 % (2.0-8.0); NEUTROPHILS % 81.1 % (40.0-76.0); PLATELET 210 x1000/uL (130-400); RED BLOOD CELL COUNT 4.53 mill/uL (4.7-6.1); RED CELL DISTRIBUTION WIDTH 14.2 % (11.6-14.6)
[2020-11-13] MEDS ORDERED: MORPHINE SULFATE 2 MG/ML CPJ (NOT FOR IM USE) IV NR (12:45)
[2020-11-13] MEDS ORDERED: DEXT 5%/0.45% NACL 1000ML 1,000 ML IV SCH (14:00)
[2020-11-13] MEDS ORDERED: HYDROCODONE/ACETAMINOPHEN 5/325MG TABLET PO PRN (14:00)
[2020-11-13] MEDS ORDERED: PIPERACILLIN/TAZ 3.375G PREMIX 50 ML IV SCH (14:00)
[2020-11-13] MEDS ORDERED: ONDANSETRON HCL 4MG/2ML INJ IV PRN (14:00)
[2020-11-13] MEDS ORDERED: METOCLOPRAMIDE HCL 10MG/2ML VIAL IV SCH (18:00)
[2020-11-13 18:23] VITALS: BP 110/78
[2020-11-13] MEDS ORDERED: PIPERACILLIN/TAZOBACTAM 3.375 G in DEXTROSE 5% WATER 50 ML IV SCH (22:00)
[2020-11-14] MEDS ORDERED: PANTOPRAZOLE SODIUM 40 MG/VIAL IV SCH (09:00)
== END 2020-11-14 00:59 | disposition left against medical advice (07) | DRG 241 ==
LOC: ER 06:17 → MICUSO 11:08 → 7EST 22:14
PROVIDERS: ADMIT Internal Medicine; ATTEND Internal Medicine
DX: K29.70 Gastritis, unspecified, without bleeding (principal); D72.829 Elevated white blood cell count, unspecified; K52.9 Noninfective gastroenteritis and colitis, unspecified; R11.2 Nausea with vomiting, unspecified; E87.6 Hypokalemia; F17.200 Nicotine dependence, unspecified, uncomplicated; K21.9 Gastro-esophageal reflux disease without esophagitis; K76.9 Liver disease, unspecified; Z82.49 Family history of ischemic heart disease and other diseases of the circulatory system; Z20.822 Contact with and (suspected) exposure to COVID-19; N28.9 Disorder of kidney and ureter, unspecified; F12.90 Cannabis use, unspecified, uncomplicated
CPT/HCPCS: 36415; 80053; 80320; 85025; 87426; 99285; C9113; J0780; J2270; J2543; J2765; G0480

== ENCOUNTER 2021-04-24 11:23 | Inpatient (IN) | payer OTHER ==
[~2021-04-24] VITALS: Ht 165.1 cm; Wt 77.1 kg
[2021-04-24] MEDS ORDERED: MORPHINE SULFATE 4 MG/ML CPJ (NOT FOR IM USE) IV STA (13:20)
[2021-04-24] MEDS ORDERED: ONDANSETRON HCL 4MG/2ML INJ IV STA (13:20)
[2021-04-24] MEDS ORDERED: SODIUM CHLORIDE 0.9% 1,000 ML IV ONE (13:30)
[2021-04-24 14:56] LABS: CHLORIDE 78 mEq/L (98-107)
[2021-04-24 15:12] LABS: BASOPHILS % 0.2 % (0.0-2.0); HEMATOCRIT. 49.3 % (42.0-52.0); LYMPHOCYTES % 7.4 % (20.0-50.0); MEAN CORPUSCULAR HEMOGLOBIN 30.5 pg (28.0-32.0); MEAN CORPUSCULAR VOLUME 88.5 fL (80.0-94.0); MEAN PLATELET VOLUME 9.3 fl (7.4-10.4); MONOCYTES % 11.9 % (2.0-8.0); NEUTROPHILS % 80.5 % (40.0-76.0); PLATELET 316 x1000/uL (130-400); RED BLOOD CELL COUNT 5.58 mill/uL (4.7-6.1); RED CELL DISTRIBUTION WIDTH 13.7 % (11.6-14.6)
[2021-04-24] MEDS ORDERED: MORPHINE SULFATE 4 MG/ML CPJ (NOT FOR IM USE) IV NR (17:45)
[2021-04-24] MEDS ORDERED: ONDANSETRON HCL 4MG/2ML INJ IV NR (17:45)
[2021-04-24] MEDS ORDERED: MAGNESIUM 2 G PREMIX 50 ML IV ONE (18:30)
[2021-04-24] MEDS ORDERED: CEFTRIAXONE 1 G PREMIX 50 ML IV ONE (18:30)
[2021-04-24] MEDS ORDERED: POTASSIUM CHLORIDE 20MEQ/PACKET PO ONE (18:30)
[2021-04-24] MEDS ORDERED: SODIUM CHLORIDE 0.9% 1000ML BAG (SEPSIS BOLUS) IV ONE (18:30)
[2021-04-24 20:08] LABS: CLARITY URINE CLEAR (CLEAR); COLOR URINE YELLOW (YELLOW); KETONES URINE NEGATIVE (NEGATIVE); LEUKOCYTE ESTERASE URINE NEGATIVE (NEGATIVE); NITRITE URINE NEGATIVE (NEGATIVE); OCCULT BLOOD URINE TRACE (NEGATIVE); PROTEIN URINE 1+ (NEGATIVE); UROBILINOGEN URINE 0.2 E.U./dL (0.2-1.0)
[2021-04-24 20:18] LABS: *AMPHETAMINES SCREEN URINE NEGATIVE (NEGATIVE)
[2021-04-24 20:19] LABS: *BARBITURATES SCREEN URINE NEGATIVE (NEGATIVE); *BENZODIAZEPINES SCREEN URINE NEGATIVE (NEGATIVE); *COCAINE SCREEN URINE NEGATIVE (NEGATIVE); METHADONE URINE SCREEN NEGATIVE (NEGATIVE); OPIATES URINE SCREEN NEGATIVE (NEGATIVE); PHENCYCLIDINE URINE SCREEN NEGATIVE (NEGATIVE)
[2021-04-24 20:20] LABS: CANNABINOID URINE SCREEN PRESUMTIVE POSITIVE (NEGATIVE)
[2021-04-24] MEDS ORDERED: MORPHINE SULFATE 4 MG/ML CPJ (NOT FOR IM USE) IV ONE (22:00)
[2021-04-24] MEDS ORDERED: PIPERACILLIN/TAZ 3.375G PREMIX 50 ML IV ONE (23:30)
[2021-04-24 23:57] LABS: CHLORIDE 86 mEq/L (98-107)
[2021-04-25] MEDS ORDERED: POTASSIUM CHLORIDE INJ 40 MEQ in DEXT 5% WATER 250 ML IV ONE (00:15)
[2021-04-25] MEDS: KCL 20MEQ/100ML X 2 FOR TOTAL KCL 40MEQ/200ML IV SCH ×2 (00:32→03:08)
[2021-04-25] MEDS ORDERED: NALOXONE HCL 0.4MG/ML VIAL IV PRN (02:30)
[2021-04-25] MEDS ORDERED: HYDROCODONE/ACETAMINOPHEN 5/325MG TABLET PO PRN (02:30)
[2021-04-25 04:30] VITALS: BP 129/65
[2021-04-25] MEDS ORDERED: MORPHINE SULFATE 2 MG/ML CPJ (NOT FOR IM USE) IV PRN (06:00)
[2021-04-25] MEDS ORDERED: ONDANSETRON HCL 4MG/2ML INJ IV PRN (06:00)
[2021-04-25 08:00] VITALS: BP 138/86
[2021-04-25] MEDS ORDERED: DEXT 5%/0.9% NACL KCL 20MEQ/L 1,000 ML IV SCH (08:00)
[2021-04-25] MEDS: PIPERACILLIN/TAZOBACTAM 3.375 G in DEXTROSE 5% WATER 50 ML IV SCH ×2 (08:55→15:18)
[2021-04-25 09:45] LABS: BASOPHILS % 0.3 % (0.0-2.0); EOSINOPHILS % 0.3 % (0.0-5.0); HEMATOCRIT. 41.2 % (42.0-52.0); HEMOGLOBIN. 14.4 g/dL (14.0-18.0); LYMPHOCYTES % 13.4 % (20.0-50.0); MEAN CORPUSCULAR HEMOGLOBIN 30.6 pg (28.0-32.0); MEAN CORPUSCULAR VOLUME 87.9 fL (80.0-94.0); MEAN PLATELET VOLUME 9.3 fl (7.4-10.4); MONOCYTES % 13.9 % (2.0-8.0); NEUTROPHILS % 72.1 % (40.0-76.0); PLATELET 230 x1000/uL (130-400); RED BLOOD CELL COUNT 4.69 mill/uL (4.7-6.1); RED CELL DISTRIBUTION WIDTH 13.5 % (11.6-14.6)
[2021-04-25 09:56] LABS: CHLORIDE 86 mEq/L (98-107)
[2021-04-25 10:03] LABS: AMYLASE 90 IU/L (25-115)
[2021-04-25] MEDS ORDERED: POTASSIUM CHLORIDE 20MEQ TABLET SR PO NR (11:15)
[2021-04-25] MEDS ORDERED: LORAZEPAM 2MG/ML CPJ IV NR (11:45)
[2021-04-25 12:00] VITALS: BP 143/80
[2021-04-25] MEDS ORDERED: SODIUM CHLORIDE 0.9% 1,000 ML IV SCH (12:45)
[2021-04-25] MEDS ORDERED: OMEPRAZOLE 20MG CAPSULE EXTENDED RELEASE PO SCH (12:45)
[2021-04-25] MEDS: KCL 20MEQ/100ML PREMIX 100 ML IV SCH ×2 (13:27→17:11)
[2021-04-25 16:00] VITALS: BP 145/94
== END 2021-04-25 19:37 | disposition left against medical advice (07) | DRG 720 ==
LOC: ER 14:29 → MICUSO 23:21 → EDBEDREQ 23:25 → EDBEDREQTM 23:25 → 8WST 04-25 03:03
PROVIDERS: ADMIT Internal Medicine; ATTEND Internal Medicine
DX: A41.9 Sepsis, unspecified organism (principal); N17.0 Acute kidney failure with tubular necrosis; E87.1 Hypo-osmolality and hyponatremia; E87.8 Other disorders of electrolyte and fluid balance, not elsewhere classified; E87.6 Hypokalemia; G89.29 Other chronic pain; I10 Essential (primary) hypertension; K21.9 Gastro-esophageal reflux disease without esophagitis; Z20.822 Contact with and (suspected) exposure to COVID-19; F12.90 Cannabis use, unspecified, uncomplicated; Z53.29 Procedure and treatment not carried out because of patient's decision for other reasons; Z82.49 Family history of ischemic heart disease and other diseases of the circulatory system; Z87.11 Personal history of peptic ulcer disease
CPT/HCPCS: 36415; 74176; 76700; 80048; 80053; 80076; 80305; 80320; 81003; 82150; 83605; 83735; 84484; 85025; 87077; 87186; 87426; 93005; 99285; J0696; J2060; J2270; J2405; J2543; J3475; J3480; J7030; J7040; J7042; J7060; G0480

== ENCOUNTER 2021-06-30 06:22 | Inpatient (IN) | payer OTHER ==
[~2021-06-30] VITALS: Ht 165.1 cm; Wt 77.1 kg
[2021-06-30] MEDS ORDERED: MAGNESIUM/ALUMINUM HYDROXIDE/SIMETHICONE 30ML UDC PO STA (06:31)
[2021-06-30 06:45] LABS: BASOPHILS % 0.3 % (0.0-2.0); HEMATOCRIT. 50.5 % (42.0-52.0); HEMOGLOBIN. 17.5 g/dL (14.0-18.0); LYMPHOCYTES % 7.8 % (20.0-50.0); MEAN CORPUSCULAR VOLUME 89.5 fL (80.0-94.0); MEAN PLATELET VOLUME 9.3 fl (7.4-10.4); MONOCYTES % 9.1 % (2.0-8.0); NEUTROPHILS % 82.8 % (40.0-76.0); PLATELET 277 x1000/uL (130-400); RED BLOOD CELL COUNT 5.64 mill/uL (4.7-6.1); RED CELL DISTRIBUTION WIDTH 13.2 % (11.6-14.6)
[2021-06-30 07:16] LABS: CHLORIDE 90 mEq/L (98-107); ETHANOL BLOOD < 10 mg/dL
[2021-06-30] MEDS ORDERED: KETOROLAC 30MG/ML VIAL IV STA (08:44)
[2021-06-30] MEDS ORDERED: ONDANSETRON HCL 4MG/2ML INJ IV STA (08:44)
[2021-06-30] MEDS ORDERED: SODIUM CHLORIDE 0.9% 1,000 ML IV ONE (08:45)
[2021-06-30] MEDS: POTASSIUM CHLORIDE 20MEQ TABLET SR PO ONE ×2 (08:45→09:03)
[2021-06-30] MEDS ORDERED: POTASSIUM CHLORIDE INJ 40 MEQ in DEXT 5% WATER 500 ML IV ONE (08:45)
[2021-06-30] MEDS ORDERED: KCL 20MEQ/100ML X 2 FOR TOTAL KCL 40MEQ/200ML IV SCH (09:15)
[2021-06-30 13:55] VITALS: BP 123/84
[2021-06-30 14:33] LABS: *BENZODIAZEPINES SCREEN URINE NEGATIVE (NEGATIVE)
[2021-06-30 14:34] LABS: *AMPHETAMINES SCREEN URINE NEGATIVE (NEGATIVE); *BARBITURATES SCREEN URINE NEGATIVE (NEGATIVE); *COCAINE SCREEN URINE NEGATIVE (NEGATIVE); CANNABINOID URINE SCREEN PRESUMTIVE POSITIVE (NEGATIVE); METHADONE URINE SCREEN NEGATIVE (NEGATIVE); OPIATES URINE SCREEN NEGATIVE (NEGATIVE); PHENCYCLIDINE URINE SCREEN NEGATIVE (NEGATIVE)
[2021-06-30] MEDS ORDERED: ONDANSETRON HCL 4MG/2ML INJ IV PRN (15:45)
[2021-06-30 16:00] VITALS: BP 123/84
[2021-06-30] MEDS: HYDROCODONE/ACETAMINOPHEN 5/325MG TABLET PO PRN (16:11)
[2021-06-30] MEDS ORDERED: SODIUM CHLORIDE 0.45% 1,000 ML IV SCH (16:30)
[2021-06-30 20:00] VITALS: BP 142/83
[2021-06-30] MEDS: SODIUM CHLORIDE 0.9% 1,000 ML IV SCH (20:00)
[2021-06-30] MEDS ORDERED: CEFTRIAXONE 1 G PREMIX 50 ML IV SCH (20:00)
[2021-06-30] MEDS ORDERED: CEFTRIAXONE 1,000 MG in DEXTROSE 5% WATER 50 ML IV SCH (21:00)
[2021-06-30] MEDS ORDERED: INFLUENZA VACCINE 05/PF 0.5 ML SYRINGE IM ONE (23:15)
[2021-07-01] VITALS: BP 105/61
[2021-07-01] MEDS: HYDROCODONE/ACETAMINOPHEN 5/325MG TABLET PO PRN ×3 (01:18→10:33)
[2021-07-01 04:00] VITALS: BP 110/62
[2021-07-01 07:02] LABS: HEMATOCRIT. 44.4 % (42.0-52.0); HEMOGLOBIN. 15.6 g/dL (14.0-18.0); MEAN CORPUSCULAR HEMOGLOBIN 31.9 pg (28.0-32.0); MEAN CORPUSCULAR VOLUME 90.6 fL (80.0-94.0); MEAN PLATELET VOLUME 9.4 fl (7.4-10.4); PLATELET 206 x1000/uL (130-400); RED BLOOD CELL COUNT 4.89 mill/uL (4.7-6.1); RED CELL DISTRIBUTION WIDTH 13.3 % (11.6-14.6)
[2021-07-01 08:00] VITALS: BP 96/63
[2021-07-01] MEDS ORDERED: PANTOPRAZOLE SODIUM 40 MG/VIAL IV SCH (09:00)
[2021-07-01] MEDS ORDERED: POTASSIUM CHLORIDE 20MEQ TABLET SR PO SCH (09:30)
[2021-07-01] MEDS: SODIUM CHLORIDE 0.9% 1,000 ML IV SCH (10:20)
[2021-07-01 14:05] LABS: PLATELET ESTIMATE NORMAL
== END 2021-07-01 11:19 | disposition home or self-care (01) | DRG 139 ==
LOC: ER 06:22 → 6EST 10:07 → ENRESERV 13:54
PROVIDERS: ADMIT Internal Medicine; ATTEND Internal Medicine
DX: J18.9 Pneumonia, unspecified organism (principal); N17.0 Acute kidney failure with tubular necrosis; R11.2 Nausea with vomiting, unspecified; E87.1 Hypo-osmolality and hyponatremia; E87.8 Other disorders of electrolyte and fluid balance, not elsewhere classified; E87.6 Hypokalemia; G89.29 Other chronic pain; Z20.822 Contact with and (suspected) exposure to COVID-19; K21.9 Gastro-esophageal reflux disease without esophagitis; Z82.49 Family history of ischemic heart disease and other diseases of the circulatory system; Z71.51 Drug abuse counseling and surveillance of drug abuser
CPT/HCPCS: 36415; 74176; 80048; 80053; 80305; 80320; 85025; 87426; 99285; C9113; J0696; J1885; J2405; J3480; J7030; J7060; G0480

== ENCOUNTER 2021-09-25 18:54 | Emergency (ER) | payer OTHER ==
[~2021-09-25] VITALS: Ht 170.2 cm; Wt 91.0 kg
[2021-09-25 19:05] VITALS: BP 135/81
[2021-09-25 19:55] LABS: BASOPHILS % 0.6 % (0.0-2.0); EOSINOPHILS % 0.3 % (0.0-5.0); HEMATOCRIT. 40.5 % (42.0-52.0); HEMOGLOBIN. 13.7 g/dL (14.0-18.0); LYMPHOCYTES % 9.2 % (20.0-50.0); MEAN CORPUSCULAR HEMOGLOBIN 31.4 pg (28.0-32.0); MEAN CORPUSCULAR VOLUME 92.6 fL (80.0-94.0); MEAN PLATELET VOLUME 7.8 fl (7.4-10.4); NEUTROPHILS % 79.9 % (40.0-76.0); PLATELET 283 x1000/uL (130-400); RED BLOOD CELL COUNT 4.37 mill/uL (4.7-6.1); RED CELL DISTRIBUTION WIDTH 16.1 % (11.6-14.6)
[2021-09-25 20:09] LABS: CHLORIDE 109 mEq/L (98-107)
[2021-09-25] MEDS ORDERED: SODIUM CHLORIDE 0.9% 1,000 ML IV ONE (21:15)
[2021-09-25] MEDS ORDERED: METOCLOPRAMIDE HCL 10MG/2ML VIAL IV NR (21:30)
[2021-09-25] MEDS ORDERED: KETOROLAC 30MG/ML VIAL IV NR (21:30)
[2021-09-25 21:42] LABS: *AMPHETAMINES SCREEN URINE NEGATIVE (NEGATIVE); *BARBITURATES SCREEN URINE NEGATIVE (NEGATIVE); *BENZODIAZEPINES SCREEN URINE NEGATIVE (NEGATIVE); *COCAINE SCREEN URINE NEGATIVE (NEGATIVE); CANNABINOID URINE SCREEN PRESUMTIVE POSITIVE (NEGATIVE); METHADONE URINE SCREEN NEGATIVE (NEGATIVE); OPIATES URINE SCREEN NEGATIVE (NEGATIVE); PHENCYCLIDINE URINE SCREEN NEGATIVE (NEGATIVE)
== END 2021-09-26 03:00 | disposition left against medical advice (07) ==
LOC: ER 18:54
DX: R10.12 Left upper quadrant pain (principal); R11.2 Nausea with vomiting, unspecified
CPT/HCPCS: 36415; 74176; 80053; 80305; 80320; 83690; 85025; 96361; 96374; 96375; 99284; J1885; J2765; G0480